=== PATIENT | male | born 1970 | race Caucasian/White ===

== ENCOUNTER 2022-02-28 15:48 | Outpatient (CLI) | payer OTHER, SELFPAY ==
[2022-02-28 21:57] LABS: PSA Screen* 0.58 ng/mL (0.10-4.00)
== END 2022-02-28 15:49 | disposition home or self-care (01) ==
PROVIDERS: PCP Family Medicine; Visit Provider Family Medicine
DX: Z00.00 Encounter for general adult medical examination without abnormal findings (principal); Z12.5 Encounter for screening for malignant neoplasm of prostate
CPT/HCPCS: 84153

== ENCOUNTER 2022-03-28 09:18 | Outpatient (CLI) | payer OTHER, SELFPAY | END 2022-03-28 09:19 | disposition home or self-care (01) | PROVIDERS: PCP Family Medicine; Visit Provider Surgery | DX: Z12.11 Encounter for screening for malignant neoplasm of colon (principal); K64.4 Residual hemorrhoidal skin tags; K57.30 Diverticulosis of large intestine without perforation or abscess without bleeding | CPT/HCPCS: 45378; 99153; J2250; J3010 ==